=== PATIENT | male | born 1950 | race Caucasian/White ===

== ENCOUNTER 2022-04-25 11:41 | Emergency (ER) | payer OTHER ==
[~2022-04-25] VITALS: Ht 175.3 cm; Wt 82.6 kg
[2022-04-25] MEDS ORDERED: FLOMAX0.4 MG PO (12:23)
[2022-04-25] MEDS ORDERED: CLONIDINE HCL 0.2 MG TAB PO ONE (12:45)
[2022-04-25] MEDS ORDERED: CLONIDINE HCL 0.2 MG TAB ONE (12:57)
== END 2022-04-25 12:50 | disposition home or self-care (01) ==
LOC: ER 11:42
DX: R33.9 Retention of urine, unspecified (principal); Z46.6 Encounter for fitting and adjustment of urinary device; N40.0 Benign prostatic hyperplasia without lower urinary tract symptoms
CPT/HCPCS: 99283